=== PATIENT | female | born 1975 | race Caucasian/White ===

== ENCOUNTER 2016-11-26 20:58 | Emergency (ER) | payer BC ==
--- NOTE | 2016-11-26 22:36 | RAD ---
Indication: LEFT forearm pain following injury. Comparison: No relevant prior exams available on the [facility] for comparison. Technique: AP and lateral views LEFT radius and ulna. Report: Subtle osseous irregularity at the radial head neck junction which may reflect mild osteophytic lipping or minimal impaction fracture. The bony structures are otherwise unremarkable. Normal articular alignment. Unremarkable soft tissue contours. IMPRESSION: Potential although not definitive minimal impaction fracture at the radial head neck junction. Consider dedicated elbow radiographs for more accurate assessment about the elbow.
[2016-11-26] MEDS ORDERED: traMADol TAB* 50 MG PO ONE (23:09)
--- NOTE | 2016-11-27 00:28 | ED ---
Upper Extremity Pain - HPI Summary HPI Summary: 41F presents with right wrist and elbow pain after falling during roller skating. She landed on her right wrist. The pain radiates up to her elbow. She denies any numbness or tingling. no previous injury to the area. denies any other injury. pain is 8/10. is right handed. - History of Current Complaint Chief Complaint: EDExtremityUpper Stated Complaint: LT ARM INJURY Time Seen by Provider: 11/26/16 22:38 - Allergies/Home Medications Allergies/Adverse Reactions: Allergies Allergy/AdvReac Type Severity Reaction Status Date / Time Hydrocodone Allergy Unknown Hives Verified 04/06/12 13:37 PMH/Surg Hx/FS Hx/Imm Hx Endocrine/Hematology History: Denies: Hx Anticoagulant Therapy Cardiovascular History: Denies: Hx Pacemaker/ICD Respiratory History: Reports: Hx Seasonal Allergies Musculoskeletal History: Reports: Other Musculoskeletal History - lyme Disease. Sensory History: Denies: Hx Hearing Aid Neurological History: Reports: Other Neuro Impairments/Disorders - HOPI DISEASE Psychiatric History: Denies: Hx Panic Disorder - Surgical History Surgery Procedure, Year, and Place: LUMBAR FUSION L5-S1- 08/27; C SECTION -05/01 Infectious Disease History: No Infectious Disease History: Denies: Traveled Outside the [place] in Last 30 Days - Family History Known Family History: Positive: Hypertension - Social History Alcohol Use: Weekly Substance Use Type: Reports: None Smoking Status (MU): Never Smoked Tobacco Review of Systems Negative: Fever Negative: Chest Pain Negative: Shortness Of Breath Positive: Myalgia - right hand and elbow pain All Other Systems Reviewed And Are Negative: Yes Physical Exam Triage Information Reviewed: Yes Vital Signs On Initial Exam: Initial Vitals Temp Pulse Resp BP Pulse Ox 98.7 F 87 18 120/76 100 11/26/16 21:04 11/26/16 21:04 11/26/16 21:04 11/26/16 21:04 11/26/16 21:04 Vital Signs Reviewed: Yes Appearance: Positive: Well-Appearing Skin: Positive: Warm, Dry Head/Face: Positive: Normal Head/Face Inspection Eyes: Positive: Normal, Conjunctiva Clear Respiratory/Lung Sounds: Positive: Clear to Auscultation, Breath Sounds Present Cardiovascular: Positive: Normal, RRR Musculoskeletal: Positive: Limited @ - thumb right, Other - pos snuff box tenderness, tender over radial head, good pulses, capillary refill<2 secs Neurological: Positive: Normal Psychiatric: Positive: Normal Procedures - Splinting Location: hand right Hand-Made Type: orthoglass Splint: thumb spica Pre-Proc Neuro Vasc Exam: normal Post-Proc Neuro Vasc Exam: normal Diagnostics - Vital Signs Vital Signs Temp Pulse Resp BP Pulse Ox 11/26/16 21:04 98.7 F 87 18 120/76 100 - Laboratory Lab Statement: Any lab studies that have been ordered have been reviewed, and results considered in the medical decision making process. - Radiology forearm Xray Interpretation: Positive (See Comments) - IMPRESSION: Potential although not definitive minimal impaction fracture at the radial head neck junction. Consider dedicated elbow radiographs for more accurate assessment about the elbow. Radiology Interpretation Completed By: Radiologist wrist Xray Interpretation: Positive (See Comments) - anterior sail sign, possible radial neck fracture Radiology Interpretation Completed By: ED Physician Course/Dx - Course Course Of Treatment: 41F presents with right wrist and elbow pain after falling during roller skating. She landed on her right wrist. The pain radiates up to her elbow. She denies any numbness or tingling. no previous injury to the area. denies any other injury. pain is 8/10. on exam has snuff box tenderness. xray forearm radiologist possible radial head injury. elbow shows anterior sail sign. placed in thumb spica and sling. gave tramadol for pain. patient understands and agrees with plan. - Diagnoses Differential Diagnosis/HQI/PQRI: Positive: Fracture (Closed), Strain, Sprain Provider Diagnoses: Fracture of scaphoid of right wrist, Radial head fracture Discharge - Discharge Plan Condition: Good Disposition: HOME Prescriptions: traMADol TAB* [Ultram*] 50 mg PO Q6HR PRN #20 tab MDD 4 PRN Reason: Pain Patient Education Materials: Scaphoid Fracture (ED), Elbow Fracture (ED) Forms: *Work Release Referrals: David Madison MD [Primary Care Provider] - Additional Instructions: Keep elbow in sling Keep splint on area and keep dry Call ortho office tomorrow to set up appointment for follow up Use ibuprofen for pain every 6 hours and use narcotic for breakthrough pain Ice, elevate Return to ED if develop numbness or tingling or any new or worsening symptoms
[2016-11-27] MEDS ORDERED: traMADol TAB* 50 MG PO ONE (00:34)
[2016-11-27 00:48] VITALS: BP 129/79
--- NOTE | 2016-11-27 08:24 | RAD ---
INDICATION: Left elbow pain after a fall rollerskating. COMPARISON: Same day radiograph of the left forearm that arose suspicion for left radial head fracture. TECHNIQUE: 4 views left elbow. REPORT: The visualized bones of the left elbow are well corticated and properly aligned. There is no radiographically apparent fracture or dislocation. There is no radiographic evidence of pathologic joint effusion. IMPRESSION: Normal radiograph of the left elbow. If the patient's symptoms persist further follow-up imaging is recommended.
== END 2016-11-27 00:47 | disposition home or self-care (01) ==
LOC: ED 20:58
DX: S62.001A Unspecified fracture of navicular [scaphoid] bone of right wrist, initial encounter for closed fracture (principal); S52.121A Displaced fracture of head of right radius, initial encounter for closed fracture; W19.XXXA Unspecified fall, initial encounter; Y93.51 Activity, roller skating (inline) and skateboarding; Y92.9 Unspecified place or not applicable; Y99.9 Unspecified external cause status
CPT/HCPCS: 99282; A9270-GY